=== PATIENT | female | born 1950 | race Caucasian/White ===

== ENCOUNTER 2017-08-04 09:17 | Day surgery (SDC) | payer MEDICARE, OTHER ==
[2017-08-02 10:44] VITALS: BMI 39.4
[2017-08-04] MEDS ORDERED: ceFAZolin IV 1 gm in Dextrose 1 GM/50 ML BAG IVPB ONE ×2 (11:22→12:13)
[2017-08-04] MEDS ORDERED: Lidocaine 1% Inj (20ml) ONE (11:22)
[2017-08-04] MEDS ORDERED: Bupivacaine HCl 0.25% PF (10 ml) Inj ONE (11:22)
[2017-08-04] MEDS ORDERED: Lactated Ringer's 1,000 ML IV ONE (11:55)
[2017-08-04] MEDS ORDERED: Midazolam 2 MG/2 ML VIAL ONE (12:05)
[2017-08-04] MEDS ORDERED: Propofol 10 mg/ml Inj (20 ML) ONE (12:06)
[2017-08-04] MEDS ORDERED: Lidocaine Hydrochloride 5 ML INJ ONE (12:34)
[2017-08-04] MEDS ORDERED: Oxycodone/Acetaminophen 5/325 mg Tab PO PRN (12:45)
[2017-08-04] MEDS: HYDROmorphone 0.5 mg/0.5 ml ISec IVP PRN ×2 (12:56→13:20)
[2017-08-04] MEDS ORDERED: HYDROmorphone 0.5 mg/0.5 ml ISec ONE (12:58)
[2017-08-04 14:54] VITALS: BP 135/50; PULSE 92; RESP 18; TEMP 97; O2SAT 96
--- NOTE | 2017-08-04 22:27 | OP ---
PROCEDURE DATE: 08/04/2017 PREOPERATIVE DIAGNOSIS: Soft tissue neoplasm of left axilla. POSTOPERATIVE DIAGNOSIS: Soft tissue neoplasm of left axilla. PROCEDURE PERFORMED: Wide and deep excision (radical resection) of soft tissue neoplasm of the left axilla. SURGEON: Aravind Ledbetter MD TYPE OF ANESTHESIA: General. ESTIMATED BLOOD LOSS: 20 mL. POSTOPERATIVE CONDITION: Stable. INDICATIONS FOR SURGERY: This is a 67-year-old female who presents with a growing mass of the left axilla, who will now undergo wide and deep excision. DESCRIPTION OF PROCEDURE: The patient was taken to the operating room, general anesthesia was administered and the left arm was extended and the axilla was prepped and draped. A generous elliptical incision was made surrounding the soft tissue neoplasm and left axilla was dissected down to the axillary fascia. Bleeding was controlled using the Bovie. A larger axillary blood vessels were repaired. The wound was irrigated with saline and generous tissue flaps were raised using a Bovie. A greater than 30 sq cm advancement flap closure was performed using multiple layers of Monocryl, subcuticular Monocryl, and skin clips. The patient tolerated the procedure well and returned to recovery in stable condition. Aravind Ledbetter MD
== END 2017-08-04 15:13 | disposition home or self-care (01) ==
LOC: C.SDS 09:17
PROVIDERS: ATTEND Surgery
DX: D17.22 Benign lipomatous neoplasm of skin and subcutaneous tissue of left arm (principal)
CPT/HCPCS: 11406; 82948; 88307; J0690; J1170; J2250; J2704; J3010; J7120

== ENCOUNTER 2017-08-06 10:42 | Emergency (ER) | payer MEDICARE, OTHER ==
[2017-08-06 11:06] VITALS: BP 124/81; PULSE 78; RESP 18; TEMP 98.3; O2SAT 96; BMI 47.2
--- NOTE | 2017-08-06 11:49 | C.PDOC ---
History Of Present Illness 67 year old female presents to the ED for wound check. Patient is 2 days status post surgical excision of mass from left axilla by Dr. Ledbetter. The patient was told to come to the ED 2 days after the procedure for wound check and dressing. She has no complaints at this time. She denies fever or pain. 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) History/Exam Limitations: no limitations Onset/Duration Of Symptoms: Days Ago Quality Of Symptoms: denies: Painful Severity: None Pain Scale Rating Of: 0 Past Medical History Reviewed: Historical Data, Nursing Documentation, Vital Signs Vital Signs: Last Vital Signs Temp 98.3 F 08/06/17 11:05 Pulse 78 08/06/17 11:05 Resp 18 08/06/17 11:05 BP 124/81 08/06/17 11:05 Pulse Ox 96 08/06/17 12:02 - Medical History PMH: Asthma, Back Problems, COPD, Diabetes, HTN, Hypercholesterolemia, Peripheral Edema ("MY LEGS HAVE BEEN SWOLLEN FOR 1 1/2YRS."), Rheumatoid Arthritis Family History: States: Unknown Family Hx - Social History Hx Tobacco Use: No Hx Alcohol Use: No - Immunization History Hx Tetanus Toxoid Vaccination: No Hx Influenza Vaccination: No Hx Pneumococcal Vaccination: No Review Of Systems Except As Marked, All Systems Reviewed And Found Negative. Skin: Positive for: Other (Wound check) Physical Exam - Physical Exam Appears: Non-toxic, No Acute Distress Skin: Normal Color, Warm, Dry, Other (Left axilla with 8 radha at site of surgical incision, clean dry and intact, no swelling, no erythema, no discharge) Head: Atraumatic, Normacephalic Eye(s): bilateral: Normal Inspection Neck: Normal ROM Chest: Symmetrical Neurological/Psych: Oriented x3, Normal Speech ED Course And Treatment O2 Sat by Pulse Oximetry: 96 Pulse Ox Interpretation: Normal Medical Decision Making Medical Decision Making: Wound care: dressing removed and area was irrigated with NS. New sterile dressing applied. 8 radha clean dry and intact Give patient information for follow up. She is asking for arm sling. Disposition Counseled Patient/Family Regarding: Diagnosis, Need For Followup, Rx Given - Disposition Referrals: Aravind Ledbetter MD [Staff Provider] - Disposition: HOME/ ROUTINE Disposition Time: 11:54 Condition: STABLE Additional Instructions: Please follow up with Dr Ledbetter for follow up on 08/17/17 for staple removal. You can change dressing at home daily. Instructions: Acute Wound Care (ED) Forms: [employer] (Palauan) Print Language: SOUTH AFRICAN - POA Present On Arrival: None - Clinical Impression Clinical Impression: Change of dressing - Scribe Statement The provider has reviewed the documentation as recorded by the Scribe Brandin Maynard
== END 2017-08-06 12:07 | disposition home or self-care (01) ==
LOC: C.ER 10:42
DX: Z48.01 Encounter for change or removal of surgical wound dressing (principal)

== ENCOUNTER 2017-08-10 12:29 | Emergency (ER) | payer MEDICARE, OTHER ==
[2017-08-10 12:29] VITALS: BMI 47.2
[2017-08-10 12:47] VITALS: BP 124/70; PULSE 66; RESP 18; TEMP 98; O2SAT 99
[2017-08-10] MEDS ORDERED: Bacitracin 500 Units/gm Oint Foilpak UD ONE (13:50)
--- NOTE | 2017-08-10 14:09 | C.PDOC ---
History Of Present Illness 67 year old female presents to the ED requesting dressing change, status post cyst removal one week ago preformed by Dr. Ledbetter. Patient notes cyst is in the left under arm and denies drainage or fever. 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 ) History/Exam Limitations: no limitations Onset/Duration Of Symptoms: Days Ago (1 week ago ) Current Symptoms Are (Timing): Better Location Of Injury: Left: Arm (left under arm ) Quality Of Symptoms: denies: Draining Recent travel outside of the [place]: No Past Medical History Reviewed: Historical Data, Nursing Documentation, Vital Signs Vital Signs: Last Vital Signs Temp 98 F 08/10/17 12:44 Pulse 66 08/10/17 12:44 Resp 18 08/10/17 12:44 BP 124/70 08/10/17 12:44 Pulse Ox 99 08/10/17 22:40 - Medical History PMH: Asthma, Back Problems, COPD, Diabetes, HTN, Hypercholesterolemia, Peripheral Edema ("MY LEGS HAVE BEEN SWOLLEN FOR 1 1/2YRS."), Rheumatoid Arthritis Family History: States: Unknown Family Hx - Social History Hx Tobacco Use: No Hx Alcohol Use: No Hx Substance Use: No - Immunization History Hx Tetanus Toxoid Vaccination: No Hx Influenza Vaccination: No Hx Pneumococcal Vaccination: No Review Of Systems Constitutional: Negative for: Fever Skin: Positive for: Other (cyst removed from left under arm ) Physical Exam - Physical Exam Appears: Non-toxic, No Acute Distress Skin: Warm, Dry, Other ([place] intact, no erythema, or drainage to left axilla ) Head: Atraumatic, Normacephalic Eye(s): bilateral: Normal Inspection, PERRL, EOMI Cardiovascular: Rhythm Regular, No Murmur Respiratory: No Rales, No Rhonchi, No Wheezing, Other (clear to auscultation bilaterally ) Extremity: Normal ROM, No Tenderness, Capillary Refill (good capillary refill, less than two seconds ), No Deformity, No Swelling Neurological/Psych: Oriented x3 ED Course And Treatment O2 Sat by Pulse Oximetry: 99 (RA) Disposition - Disposition Referrals: Aravind Ledbetter MD [Staff Provider] - Disposition: HOME/ ROUTINE Disposition Time: 13:30 Condition: GOOD Additional Instructions: Thank you for letting us take care of you today. Your provider was Dr. Rain. You were treated for a wound check. The emergency medical care you received today was directed at your acute symptoms. If you were prescribed any medication, please fill it and take as directed. It may take several days for your symptoms to resolve. Return to the Emergency Department if your symptoms worsen, do not improve, or if you have any other problems. Please contact your doctor or call one of the physicians/clinics you have been referred to that are listed on the Patient Visit Information form that is included in your discharge packet. Bring any paperwork you were given at discharge with you along with any medications you are taking to your follow up visit. Our treatment cannot replace ongoing medical care by a primary care provider (PCP) outside of the emergency department. Thank you for allowing the [facility] team to be part of your care today. Follow up with your surgeon as schedled for a continued care. Instructions: Staple Care (ED) Forms: [employer] (Stateless) - Clinical Impression Clinical Impression: Change of dressing - Scribe Statement The provider has reviewed the documentation as recorded by the Scribe Shirley Jones All medical record entries made by the Scribe were at my direction and personally dictated by me. I have reviewed the chart and agree that the record accurately reflects my personal performance of the history, physical exam, medical decision making, and the department course for this patient. I have also personally directed, reviewed, and agree with the discharge instructions and disposition.
== END 2017-08-10 14:13 | disposition home or self-care (01) ==
LOC: C.ER 12:29
DX: Z48.01 Encounter for change or removal of surgical wound dressing (principal)